=== PATIENT | female | born 1960 | race African-American/Black ===

== ENCOUNTER 2016-12-10 23:25 | Inpatient (IN) | payer MEDICARE, MEDICAID ==
[~2016-12-10] VITALS: Ht 170.2 cm; Wt 89.0 kg
[~2016-12-10 23:25] MED LIST: CARB200C; CARB200T4 PO; CLON-365; DIAZ10TA4 PO; FLUR30CA3; IBUP-1222 PO; LEVO100T PO; LEVO150T5 PO; LEVO200T5; LEVO50TA5 PO; LEVO750T6 PO; LISI-170; LISI-170 PO; MIRT15TA4; MIRT45TA4 PO; MUPI22OI2 TP; NITR100C PO; ONDA4TAB7; PANT40TA5; PROM25TA10; QUET100T; RANI150T4 PO; RELACORE PO; SERT100T; TEMA30CA PO; TRAZ100T15 PO; ZIPR40CA3 PO
[2016-12-11] MEDS ORDERED: ONDANSETRON 2MG/ML, 2ML IVPush ONE
[2016-12-11] MEDS ORDERED: SODIUM CHLORIDE 0.9% 1,000ML IVBOLUS ONE
[2016-12-11] MEDS ORDERED: SODIUM CHLORIDE FLUSH 10ML SYR IVF ONE
[2016-12-11] MEDS ORDERED: FENTANYL PF 100 MCG/2ML ONE ×2 (00:14→02:02)
[2016-12-11] MEDS ORDERED: ONDANSETRON 2MG/ML, 2ML ONE (00:14)
[2016-12-11 00:25] LABS: ASPARTATE AMINO TRANSFERASE 24 U/L (15-37); BLOOD UREA NITROGEN 10 mg/dL (7-18)
[2016-12-11] MEDS: FENTANYL PF 100 MCG/2ML IVPush PRN ×4 (00:34→08:39)
[2016-12-11] MEDS ORDERED: OMNIPAQUE 350 MG/ML, 100ML BOTTLE ONE (00:57)
[2016-12-11] MEDS ORDERED: SODIUM CHLORIDE 0.9% 1,000 ML IV ONE (01:49)
[2016-12-11] MEDS ORDERED: METRONIDAZOLE PMX 500MG/100ML 100 ML IV ONE (02:00)
[2016-12-11] MEDS ORDERED: CIPROFLOXACIN/PMX 400MG/200ML 200 ML IV ONE (02:00)
[2016-12-11] MEDS ORDERED: ONDANSETRON 2MG/ML, 2ML IVPush PRN (02:00)
[2016-12-11] MEDS ORDERED: HYDROmorphone 1 MG/ML, 1ML IVPush PRN (02:00)
[2016-12-11] MEDS ORDERED: ONDANSETRON 2MG/ML, 2ML IVP PRN (02:30)
[2016-12-11] MEDS ORDERED: ACETAMINOPHEN 325 MG TABLET PO PRN (02:30)
[2016-12-11] MEDS ORDERED: DOCUSATE 100 MG CAPSULE PO PRN (02:30)
[2016-12-11] MEDS ORDERED: POLYETHYLENE GLYCOL 17 GM PACKET PO PRN (02:30)
[2016-12-11] MEDS ORDERED: METRONIDAZOLE PMX 500MG/100ML 100 ML ONE (02:47)
[2016-12-11] MEDS ORDERED: CIPROFLOXACIN/PMX 400MG/200ML 200 ML ONE (02:47)
[2016-12-11] MEDS: CIPROFLOXACIN/PMX 400MG/200ML 200 ML IV SCH ×2 (03:15→15:07)
[2016-12-11] MEDS: LEVOTHYROXINE 150 MCG TABLET PO SCH ×2 (03:42→20:38)
[2016-12-11] MEDS: NS + 20MEQ KCL 1,000 ML IV SCH ×2 (05:04→10:54)
[2016-12-11 08:07] VITALS: BP 117/84
[2016-12-11] MEDS ORDERED: DIAZEPAM 5 MG TABLET ONE ×3 (08:37→20:28)
[2016-12-11] MEDS: DIAZEPAM 10 MG TABLET PO SCH ×3 (08:39→20:37)
[2016-12-11] MEDS: CARBAMAZEPINE 200 MG TABLET PO SCH ×2 (08:39→20:37)
[2016-12-11] MEDS: LISINOPRIL 20 MG TABLET PO SCH (08:39)
[2016-12-11] MEDS: FAMOTIDINE 20 MG TABLET PO SCH ×2 (08:39→20:37)
[2016-12-11] MEDS: ZIPRASIDONE 40MG CAPSULE PO SCH ×2 (08:40→20:38)
[2016-12-11] MEDS: METRONIDAZOLE PMX 500MG/100ML 100 ML IV SCH ×2 (10:54→18:41)
[2016-12-11] MEDS: ENOXAPARIN 40 MG/0.4 ML SQ SCH (11:45)
[2016-12-11] MEDS: HYDROcodone/APAP 5/325 TABLET PO PRN ×2 (15:08→20:38)
[2016-12-11 15:28] VITALS: BP 92/60
[2016-12-11 19:17] VITALS: BP 99/56
[2016-12-11] MEDS ORDERED: MIRTAZAPINE 15 MG TABLET PO SCH (21:00)
[2016-12-12] MEDS: METRONIDAZOLE PMX 500MG/100ML 100 ML IV SCH (02:49)
[2016-12-12] MEDS: HYDROcodone/APAP 5/325 TABLET PO PRN ×2 (02:54→09:14)
[2016-12-12] MEDS: CIPROFLOXACIN/PMX 400MG/200ML 200 ML IV SCH (04:12)
[2016-12-12 04:24] VITALS: BP 122/76
[2016-12-12 05:36] LABS: BLOOD UREA NITROGEN 8 mg/dL (7-18)
[2016-12-12] MEDS: LEVOTHYROXINE 150 MCG TABLET PO SCH (07:24)
[2016-12-12 08:31] VITALS: BP 96/57
[2016-12-12] MEDS: LISINOPRIL 20 MG TABLET PO SCH ×2 (09:14→09:23)
[2016-12-12] MEDS: ZIPRASIDONE 40MG CAPSULE PO SCH (09:14)
[2016-12-12] MEDS: FAMOTIDINE 20 MG TABLET PO SCH (09:14)
[2016-12-12] MEDS: CARBAMAZEPINE 200 MG TABLET PO SCH (09:14)
[2016-12-12] MEDS ORDERED: DIAZEPAM 5 MG TABLET ONE (09:17)
[2016-12-12] MEDS: DIAZEPAM 10 MG TABLET PO SCH (09:19)
[2016-12-12] MEDS ORDERED: ONDA4TAB10 PO (09:48)
[2016-12-12] MEDS ORDERED: HYDR-3240 PO (09:48)
[2016-12-12] MEDS ORDERED: CEFD300C37 PO (09:48)
[2016-12-12] MEDS ORDERED: METR500T PO (09:48)
[2016-12-12] MEDS ORDERED: metroNIDAZOLE 500 MG TABLET PO SCH (10:00)
[2016-12-12] MEDS ORDERED: CEFDINIR 300 MG CAPSULE PO SCH (10:00)
[2016-12-12] MEDS: ENOXAPARIN 40 MG/0.4 ML SQ SCH (11:51)
[2016-12-12 12:00] VITALS: BP 103/69
== END 2016-12-12 12:10 | disposition home or self-care (01) | DRG 872 ==
LOC: ED 12-11 01:48 → 4NOR 12-11 01:49 → SUATTDRO 12-11 02:03 → ED 12-11 02:20
PROVIDERS: ADMIT Family Medicine
DX: A41.9 Sepsis, unspecified organism (principal); E87.1 Hypo-osmolality and hyponatremia; E87.2 Acidosis; K52.9 Noninfective gastroenteritis and colitis, unspecified; D75.1 Secondary polycythemia; I10 Essential (primary) hypertension; E03.9 Hypothyroidism, unspecified; D64.9 Anemia, unspecified; E86.0 Dehydration; F12.90 Cannabis use, unspecified, uncomplicated; F17.200 Nicotine dependence, unspecified, uncomplicated; F32.9 Major depressive disorder, single episode, unspecified; F41.1 Generalized anxiety disorder; K21.9 Gastro-esophageal reflux disease without esophagitis; Z82.49 Family history of ischemic heart disease and other diseases of the circulatory system; Z83.3 Family history of diabetes mellitus; Z90.89 Acquired absence of other organs; Z90.710 Acquired absence of both cervix and uterus; Z91.040 Latex allergy status; Z88.5 Allergy status to narcotic agent; Z91.018 Allergy to other foods
CPT/HCPCS: 36415; 74174; 80048; 80053; 81001; 83605; 83690; 83735; 85025; 85610; 87046; 87324; 93005; 96361; 96374; 96375; 96376; J0744; J1650; J2405; J3010; J3480; Q9967; J7030

== ENCOUNTER 2017-04-04 09:07 | Emergency (ER) | payer MEDICARE, MEDICAID ==
[~2017-04-04] VITALS: Ht 170.2 cm; Wt 85.0 kg
[2017-04-04 11:03] VITALS: BP 114/77
== END 2017-04-04 11:07 | disposition home or self-care (01) ==
LOC: ED 10:13
DX: F32.9 Major depressive disorder, single episode, unspecified (principal); E03.9 Hypothyroidism, unspecified; I10 Essential (primary) hypertension; K21.9 Gastro-esophageal reflux disease without esophagitis; F19.10 Other psychoactive substance abuse, uncomplicated
CPT/HCPCS: 93005; 99284

== ENCOUNTER → 2017-04-04 | Outpatient (CLI) | payer MEDICARE, MEDICAID ==
[~2017-04-04] MED LIST changes: +CEFD300C37 PO; +HYDR-3240 PO; +METR500T PO; +ONDA4TAB10 PO
== END | disposition home or self-care (01) ==
LOC: LAB 11:11
PROVIDERS: ATTEND Internal Medicine
DX: Z02.9 Encounter for administrative examinations, unspecified (principal)

== ENCOUNTER 2017-04-09 03:45 | Emergency (ER) | payer MEDICARE, MEDICAID ==
[~2017-04-09] VITALS: Ht 165.1 cm; Wt 82.7 kg
[2017-04-09] MEDS ORDERED: methylPREDNISolone SOD SUCC 125 MG/2 ML ONE (03:57)
[2017-04-09] MEDS ORDERED: FAMOTIDINE 20 MG/2 ML ONE ×2 (03:58→04:01)
[2017-04-09] MEDS ORDERED: SODIUM CHLORIDE 0.9%, 500ML IVBOLUS ONE (04:00)
[2017-04-09] MEDS ORDERED: methylPREDNISolone SOD SUCC 125 MG/2 ML IVPush SCH (04:00)
[2017-04-09] MEDS ORDERED: FAMOTIDINE 20 MG/2 ML IVPush ONE (04:00)
[2017-04-09] MEDS ORDERED: SODIUM CHLORIDE FLUSH 10ML SYR IVF ONE (04:00)
[2017-04-09 04:21] LABS: HEMATOCRIT 32.5 % (34.6-47.8); HEMOGLOBIN 11.1 g/dL (11.7-16.4); WHITE BLOOD COUNT 4.4 x10^3/uL (3.4-10)
[2017-04-09 04:30] LABS: BLOOD UREA NITROGEN 15 mg/dL (7-18)
[2017-04-09 04:56] VITALS: BP 117/71
== END 2017-04-09 05:56 | disposition home or self-care (01) ==
LOC: ED 04:19
DX: T78.3XXA Angioneurotic edema, initial encounter (principal); I10 Essential (primary) hypertension
CPT/HCPCS: 36415; 80048; 85025; 96361; 96374; 96375; 99284; J2930; J7040; S0028

== ENCOUNTER 2017-04-10 23:01 | Emergency (ER) | payer MEDICARE, MEDICAID ==
[~2017-04-10] VITALS: Ht 170.2 cm; Wt 75.0 kg
[2017-04-10] MEDS ORDERED: HYDROmorphone 1 MG/ML, 1ML ONE (23:30)
[2017-04-10] MEDS ORDERED: SODIUM CHLORIDE FLUSH 10ML SYR IVF ONE (23:30)
[2017-04-10] MEDS ORDERED: ONDANSETRON 2MG/ML, 2ML ONE (23:30)
[2017-04-10] MEDS ORDERED: ONDANSETRON 2MG/ML, 2ML IVPush ONE (23:30)
[2017-04-11] MEDS: HYDROmorphone 1 MG/ML, 1ML IVPush PRN ×2 (00:27→01:47)
[2017-04-11] MEDS ORDERED: ONDANSETRON 2MG/ML, 2ML ONE (01:45)
[2017-04-11] MEDS ORDERED: HYDROmorphone 1 MG/ML, 1ML ONE (01:45)
[2017-04-11] MEDS ORDERED: ONDANSETRON 2MG/ML, 2ML IVPush ONE (02:00)
[2017-04-11 02:50] VITALS: BP 117/67
== END 2017-04-11 02:56 | disposition home or self-care (01) ==
LOC: ED 23:58
DX: S02.82XA Fracture of other specified skull and facial bones, left side, initial encounter for closed fracture (principal); S40.011A Contusion of right shoulder, initial encounter; S00.12XA Contusion of left eyelid and periocular area, initial encounter; S50.01XA Contusion of right elbow, initial encounter; S60.011A Contusion of right thumb without damage to nail, initial encounter; S80.01XA Contusion of right knee, initial encounter; I10 Essential (primary) hypertension; E03.9 Hypothyroidism, unspecified; Z90.710 Acquired absence of both cervix and uterus; F17.200 Nicotine dependence, unspecified, uncomplicated; Y08.89XA Assault by other specified means, initial encounter; Y93.89 Activity, other specified; Y92.009 Unspecified place in unspecified non-institutional (private) residence as the place of occurrence of the external cause; Y99.9 Unspecified external cause status
CPT/HCPCS: 70450; 70486; 72125; 73030; 73080; 73130; 73564; 96374; 96375; 96376; 99284; J1170; J2405

== ENCOUNTER → 2017-05-01 | Outpatient (CLI) | payer MEDICARE, MEDICAID ==
[2017-05-01 10:55] LABS: HIV 1&2 ANTIBODY SCREEN Nonreactive (Nonreactive); HIV-1 p24 ANTIGEN Nonreactive (Nonreactive)
== END | disposition home or self-care (01) ==
LOC: LAB 10:07
DX: Z11.3 Encounter for screening for infections with a predominantly sexual mode of transmission (principal)
CPT/HCPCS: 36415; 86592; 86703; 86803; 87340; 87899; G0435

== ENCOUNTER 2017-05-02 10:35 | Emergency (ER) | payer MEDICARE, MEDICAID ==
[~2017-05-02] VITALS: Ht 170.2 cm; Wt 75.0 kg
[2017-05-02] MEDS ORDERED: ONDANSETRON ODT 4 MG ONE (11:29)
[2017-05-02] MEDS ORDERED: HYDROmorphone 1 MG/ML, 1ML ONE (11:29)
[2017-05-02] MEDS ORDERED: ONDANSETRON ODT 4 MG PO ONE (11:30)
[2017-05-02] MEDS ORDERED: HYDROmorphone 1 MG/ML, 1ML IM PRN (11:30)
[2017-05-02 11:42] VITALS: BP 114/72
== END 2017-05-02 12:50 | disposition home or self-care (01) ==
LOC: ED 12:46
DX: S20.212A Contusion of left front wall of thorax, initial encounter (principal); I10 Essential (primary) hypertension; K21.9 Gastro-esophageal reflux disease without esophagitis; Z91.040 Latex allergy status; W19.XXXA Unspecified fall, initial encounter; Y93.89 Activity, other specified; Y92.009 Unspecified place in unspecified non-institutional (private) residence as the place of occurrence of the external cause; Y99.9 Unspecified external cause status
CPT/HCPCS: 71101; 96372; 99284; J1170; Q0162

== ENCOUNTER 2017-08-09 22:05 | Emergency (ER) | payer MEDICARE, MEDICAID ==
[~2017-08-09] VITALS: Ht 170.2 cm; Wt 80.0 kg
[2017-08-09] MEDS ORDERED: ONDANSETRON 2MG/ML, 2ML ONE (22:44)
[2017-08-09 23:00] LABS: BASOPHILS # (AUTO) 0.04 x10^3/uL (0-0.1); BASOPHILS % (AUTO) 0 % (0-1); EOSINOPHILS # (AUTO) 0.06 x10^3/uL (0-0.4); EOSINOPHILS % (AUTO) 1 % (1-7); LYMPHOCYTES # (AUTO) 1.98 x10^3/uL (1-3.4); LYMPHOCYTES % (AUTO) 18 % (22-44); MD NO; MEAN CORPUSCULAR HEMOGLOBIN 31.1 pg (27.0-34.8); MEAN CORPUSCULAR HGB CONC 33.9 g/dL (32.4-35.8); MEAN CORPUSCULAR VOLUME 91.7 fL (80-100); MEAN PLATELET VOLUME 8.1 fL (7.4-10.4); MONOCYTES # (AUTO) 0.57 x10^3/uL (0.2-0.8); MONOCYTES % (AUTO) 5 % (2-9); NEUTROPHILS # (AUTO) 8.29 x10^3/uL (1.8-6.8); NEUTROPHILS % (AUTO) 76 % (42-75); PLATELET COUNT 304 x10^3/uL (130-400); RED BLOOD COUNT 4.29 x10^6/uL (3.82-5.3); RED CELL DISTRIBUTION WIDTH 13.3 % (9.6-15.2)
[2017-08-09] MEDS ORDERED: SODIUM CHLORIDE 0.9% 1,000ML IVBOLUS ONE (23:00)
[2017-08-09] MEDS ORDERED: ONDANSETRON 2MG/ML, 2ML IVPush ONE (23:00)
[2017-08-09 23:03] LABS: ALANINE AMINOTRANSFERASE 20 U/L (12-78); ALBUMIN 4.1 g/dL (3.4-5.0); ANION GAP 11 mmol/L (5-15); CALCIUM 9.6 mg/dL (8.5-10.1); CHLORIDE 106 mmol/L (98-107); CREATININE 1.09 mg/dL (0.55-1.02)
[2017-08-09 23:05] LABS: ALKALINE PHOSPHATASE 80 U/L (45-117); BILIRUBIN,TOTAL 0.7 mg/dL (0.2-1.0); TOTAL PROTEIN 8.4 g/dL (6.4-8.2)
[2017-08-09] MEDS ORDERED: OMNIPAQUE 350 MG/ML, 100ML BOTTLE ONE (23:45)
[2017-08-10] MEDS ORDERED: KETOROLAC 30 MG/1 ML IVPush ONE
[2017-08-10 00:19] VITALS: BP 136/83
[2017-08-10 01:03] LABS: MICROSCOPIC INDICATED
[2017-08-10 01:11] LABS: CULTURE INDICATED? YES
== END 2017-08-10 02:13 | disposition home or self-care (01) ==
LOC: ED 23:53
DX: A09 Infectious gastroenteritis and colitis, unspecified (principal); I10 Essential (primary) hypertension; K21.9 Gastro-esophageal reflux disease without esophagitis; E89.0 Postprocedural hypothyroidism; Z90.710 Acquired absence of both cervix and uterus; Z88.5 Allergy status to narcotic agent
CPT/HCPCS: 36415; 74021; 74177; 80053; 81001; 83690; 85025; 87086; 96361; 96374; 99285; J2405; J7030; Q9967

== ENCOUNTER → 2017-10-07 | Outpatient (CLI) | payer MEDICARE, MEDICAID ==
[2017-10-07 10:45] LABS: BASOPHILS # (AUTO) 0.04 x10^3/uL (0-0.1); BASOPHILS % (AUTO) 1 % (0-1); EOSINOPHILS # (AUTO) 0.13 x10^3/uL (0-0.4); EOSINOPHILS % (AUTO) 2 % (1-7); LYMPHOCYTES # (AUTO) 3.13 x10^3/uL (1-3.4); LYMPHOCYTES % (AUTO) 48 % (22-44); MD NO; MEAN CORPUSCULAR HEMOGLOBIN 30.7 pg (27.0-34.8); MEAN CORPUSCULAR HGB CONC 33.7 g/dL (32.4-35.8); MEAN CORPUSCULAR VOLUME 91.1 fL (80-100); MEAN PLATELET VOLUME 7.8 fL (7.4-10.4); MONOCYTES % (AUTO) 8 % (2-9); NEUTROPHILS # (AUTO) 2.67 x10^3/uL (1.8-6.8); NEUTROPHILS % (AUTO) 41 % (42-75); PLATELET COUNT 327 x10^3/uL (130-400); RED BLOOD COUNT 4.14 x10^6/uL (3.82-5.3); RED CELL DISTRIBUTION WIDTH 13.8 % (9.6-15.2)
[2017-10-07 10:55] LABS: ALBUMIN 3.9 g/dL (3.4-5.0); ANION GAP 7 mmol/L (5-15); CALCIUM 9.1 mg/dL (8.5-10.1); CHLORIDE 106 mmol/L (98-107)
[2017-10-07 11:04] LABS: ALANINE AMINOTRANSFERASE 20 U/L (12-78); ALKALINE PHOSPHATASE 75 U/L (45-117); BILIRUBIN,TOTAL 0.3 mg/dL (0.2-1.0); CHOL/HDL RATIO 5.7; CHOLESTEROL, TOTAL 223 mg/dL (140-239); FREE T4 (FREE THYROXINE) 1.35 ng/dL (0.76-1.46); HDL CHOL % 17 % (28-40); HDL CHOLESTEROL (DIRECT) 39 mg/dL (40-60); LDL CHOLESTEROL,CALCULATED 153 mg/dL (54-169); LDL/HDL RATIO 3.9 (0.5-3.0); TOTAL PROTEIN 8.6 g/dL (6.4-8.2); TRIGLYCERIDES 154 mg/dL (50-200); VLDL CHOLESTEROL 31 mg/dL (0-25)
== END ==
LOC: LAB 10:31
PROVIDERS: ATTEND Registered Nurse
DX: J45.40 Moderate persistent asthma, uncomplicated (principal); Z79.899 Other long term (current) drug therapy
CPT/HCPCS: 36415; 80053; 80061; 84439; 84443; 85025

== ENCOUNTER 2018-09-03 10:05 | Outpatient (CLI) | payer MEDICARE, MEDICAID ==
[~2018-09-03 10:05] MED LIST changes: -CLON-365; +CLON1TAB11; +DOXE100C PO; +DOXEPIN PO; -MIRT45TA4 PO; +MIRT45TA61 PO; +TRAZ-137 PO; -TRAZ100T15 PO
[2018-09-03 10:58] LABS: BASOPHILS # (AUTO) 0.03 x10^3/uL (0-0.1); BASOPHILS % (AUTO) 0 % (0-1); EOSINOPHILS # (AUTO) 0.14 x10^3/uL (0-0.4); EOSINOPHILS % (AUTO) 2 % (1-7); LYMPHOCYTES # (AUTO) 2.02 x10^3/uL (1-3.4); LYMPHOCYTES % (AUTO) 25 % (22-44); MD NO; MEAN CORPUSCULAR HEMOGLOBIN 31.2 pg (27.0-34.8); MEAN CORPUSCULAR HGB CONC 33.9 g/dL (32.4-35.8); MEAN CORPUSCULAR VOLUME 91.9 fL (80-100); MEAN PLATELET VOLUME 8.1 fL (7.4-10.4); MONOCYTES # (AUTO) 0.46 x10^3/uL (0.2-0.8); MONOCYTES % (AUTO) 6 % (2-9); NEUTROPHILS # (AUTO) 5.55 x10^3/uL (1.8-6.8); NEUTROPHILS % (AUTO) 68 % (42-75); PLATELET COUNT 314 x10^3/uL (130-400); RED BLOOD COUNT 3.74 x10^6/uL (3.82-5.3); RED CELL DISTRIBUTION WIDTH 14.7 % (9.6-15.2)
[2018-09-03 11:02] LABS: HCT (SEDRATE) 34.3 % (34.6-47.8)
[2018-09-03 11:09] LABS: ALBUMIN 3.9 g/dL (3.4-5.0); ANION GAP 5 mmol/L (5-15); CHLORIDE 104 mmol/L (98-107)
[2018-09-03 11:36] LABS: % IRON SATURATION 11 % (20-55); ALANINE AMINOTRANSFERASE 21 U/L (12-78); ALKALINE PHOSPHATASE 71 U/L (45-117); BILIRUBIN,TOTAL 0.2 mg/dL (0.2-1.0); CHOL/HDL RATIO 3.9; CHOLESTEROL, TOTAL 218 mg/dL (140-239); CREATININE 1.04 mg/dL (0.55-1.02); FOLATE LEVEL 17.1 ng/mL (3.1-17.5); HDL CHOL % 26 % (28-40); HDL CHOLESTEROL (DIRECT) 56 mg/dL (40-60); IRON LEVEL 38 mcg/dL (50-170); LDL CHOLESTEROL,CALCULATED 97 mg/dL (54-169); LDL/HDL RATIO 1.7 (0.5-3.0); TOTAL IRON BINDING CAPACITY 360 mcg/dL (250-450); TOTAL PROTEIN 8.3 g/dL (6.4-8.2); TRIGLYCERIDES 326 mg/dL (50-200); VLDL CHOLESTEROL 65 mg/dL (0-25)
[2018-09-03 11:54] LABS: FREE T4 (FREE THYROXINE) 0.95 ng/dL (0.76-1.46)
[2018-09-03 12:32] LABS: HEMOGLOBIN A1C 5.8 % (4.2-6.3)
[2018-09-04 16:51] LABS: ANA SCREEN POSITIVE (Negative); ANA TITER 1:40; ANTI-NUCLEAR ANTIBODY PATTERN SPECKLED
== END 2018-09-03 23:59 | disposition home or self-care (01) ==
LOC: LAB 10:05
PROVIDERS: ATTEND Nurse Practitioner Psychiatric/Mental Health
DX: Z51.81 Encounter for therapeutic drug level monitoring (principal); I10 Essential (primary) hypertension; E55.9 Vitamin D deficiency, unspecified; M79.604 Pain in right leg; M79.605 Pain in left leg
CPT/HCPCS: 36415; 80053; 80061; 80074; 80156; 82150; 82306; 82607; 82728; 82746; 82784; 83036; 83516; 83540; 83550; 83690; 84155; 84165; 84439; 84443; 85025; 85651; 86038; 86039; 86140; 86334; 86430

== ENCOUNTER 2018-11-03 09:31 | Inpatient (IN) | payer MEDICARE, MEDICAID ==
[~2018-11-03] VITALS: Ht 170.2 cm; Wt 91.3 kg
[2018-11-03] MEDS ORDERED: methylPREDNISolone SOD SUCC 125 MG/2 ML ONE (09:48)
[2018-11-03] MEDS ORDERED: FAMOTIDINE 20 MG/2 ML ONE (09:48)
[2018-11-03] MEDS ORDERED: EPINEPHRINE 1 MG/ML, 1ML ONE (09:48)
--- NOTE | 2018-11-03 09:48 | NUR ---
Mary santoyo in [facility] - 11/03/18 at 0948 by DANIELLE PT TO ROOM FROM GERI
[2018-11-03] MEDS ORDERED: EPINEPHRINE 1 MG/ML, 1ML SQ ONE (10:00)
[2018-11-03] MEDS ORDERED: FAMOTIDINE 20 MG/2 ML IVPush ONE (10:00)
[2018-11-03] MEDS ORDERED: methylPREDNISolone SOD SUCC 125 MG/2 ML IVPush ONE (10:00)
[2018-11-03] MEDS ORDERED: SODIUM CHLORIDE FLUSH 10ML SYR IVF ONE (10:00)
--- NOTE | 2018-11-03 10:07 | NUR ---
Patient brought in by EMS for difficulty swallowing and shortness of breath beginning at approximately 0700 this morning and becoming progressively worse. EMS unable to establish IV access en route, administered benadryl 50mg IM prior to arrival and duoneb breathing treatment x1. Patient arrives in moderate distress, able to control secretions but reports "it feels like theres something stuck" (indicates to throat), and reports pain with swallowing, patient has a muffled voice. Continuous blood pressure, SPO2 and cardiac monitoring placed, IV started and medications administered as ordered. Patient now resting in [facility], reports she is beginning to feel that symptoms are improving. Call [facility]ston within reach, patient instructed to call with any changes. Report to patient's primary RN, Silvina Oviedo
[2018-11-03 10:16] LABS: BASOPHILS # (AUTO) 0.15 x10^3/uL (0-0.1); BASOPHILS % (AUTO) 2 % (0-1); EOSINOPHILS # (AUTO) 0.12 x10^3/uL (0-0.4); EOSINOPHILS % (AUTO) 1 % (1-7); LYMPHOCYTES # (AUTO) 3.71 x10^3/uL (1-3.4); LYMPHOCYTES % (AUTO) 36 % (22-44); MD NO; MEAN CORPUSCULAR HGB CONC 33.4 g/dL (32.4-35.8); MEAN CORPUSCULAR VOLUME 92.7 fL (80-100); MEAN PLATELET VOLUME 8.4 fL (7.4-10.4); MONOCYTES % (AUTO) 5 % (2-9); NEUTROPHILS # (AUTO) 5.71 x10^3/uL (1.8-6.8); NEUTROPHILS % (AUTO) 56 % (42-75); PLATELET COUNT 355 x10^3/uL (130-400); RED BLOOD COUNT 4.05 x10^6/uL (3.82-5.3); RED CELL DISTRIBUTION WIDTH 14.7 % (9.6-15.2)
[2018-11-03 10:31] LABS: ALBUMIN 4.2 g/dL (3.4-5.0); ANION GAP 9 mmol/L (5-15); CALCIUM 9.6 mg/dL (8.5-10.1); CHLORIDE 105 mmol/L (98-107); CREATININE 1.11 mg/dL (0.55-1.02)
[2018-11-03] MEDS ORDERED: ONDANSETRON 2MG/ML, 2ML ONE (10:51)
--- NOTE | 2018-11-03 10:56 | NUR ---
pt medicated for nausea. no other needs at this time. vss. awaiting results.
[2018-11-03] MEDS ORDERED: ONDANSETRON 2MG/ML, 2ML IVPush ONE (11:00)
--- NOTE | 2018-11-03 11:55 | NUR ---
PT RESTING IN ROOM. VSS. NO NEEDS AT THIS TIME. AWAITING BED ASSIGNMENT.
[2018-11-03] MEDS ORDERED: SODIUM CHLORIDE FLUSH 10ML SYR IVF PRN (12:00)
--- NOTE | 2018-11-03 12:51 | NUR ---
PT RESTING IN ROOM. VSS. NO NEEDS AT THIS TIME. AWAITING BED ASSIGNMENT.
[2018-11-03 14:12] VITALS: BP 120/79
[2018-11-03] MEDS ORDERED: ONDANSETRON 2MG/ML, 2ML IVPush PRN (15:00)
[2018-11-03] MEDS ORDERED: DOCUSATE 100 MG CAPSULE PO PRN (15:00)
[2018-11-03] MEDS ORDERED: ACETAMINOPHEN 325 MG TABLET PO PRN (15:00)
[2018-11-03] MEDS ORDERED: hydrALAzine 20 MG/ML, 1ML IVPush PRN (15:00)
[2018-11-03] MEDS ORDERED: GUAIFENESIN/COD200MG-20MG/10ML LIQUID PO PRN (15:00)
[2018-11-03 15:13] VITALS: BP 120/79
[2018-11-03] MEDS ORDERED: DIAZEPAM 5 MG TABLET ONE ×2 (15:40→21:32)
[2018-11-03] MEDS: ONDANSETRON ODT 4 MG PO SCH ×2 (15:50→21:00)
[2018-11-03] MEDS: DIAZEPAM 10 MG TABLET PO SCH ×2 (15:50→21:37)
[2018-11-03] MEDS: methylPREDNISolone SOD SUCC 125 MG/2 ML IVPush SCH (15:51)
[2018-11-03] MEDS ORDERED: DIPHENHYDRAMINE 50 MG CAPSULE PO SCH (16:00)
[2018-11-03] MEDS ORDERED: ENOXAPARIN 40 MG/0.4 ML SQ SCH (16:00)
[2018-11-03 20:11] VITALS: BP 126/83
[2018-11-03] MEDS ORDERED: CARBAMAZEPINE 200 MG TABLET PO SCH (21:00)
[2018-11-03] MEDS ORDERED: DOXEPIN 100 MG CAPSULE PO SCH (21:30)
[2018-11-03] MEDS ORDERED: ONDANSETRON ODT 4 MG PO PRN (21:30)
[2018-11-03] MEDS: FAMOTIDINE 20 MG/2 ML IVPush SCH (21:36)
[2018-11-03] MEDS: DIPHENHYDRAMINE 50 MG CAPSULE PO SCH (23:59)
[2018-11-04 02:29] VITALS: BP 145/79
[2018-11-04 06:07] LABS: BASOPHILS # (AUTO) 0.01 x10^3/uL (0-0.1); BASOPHILS % (AUTO) 0 % (0-1); EOSINOPHILS % (AUTO) 0 % (1-7); LYMPHOCYTES # (AUTO) 1.08 x10^3/uL (1-3.4); LYMPHOCYTES % (AUTO) 10 % (22-44); MD NO; MEAN CORPUSCULAR HGB CONC 34.3 g/dL (32.4-35.8); MEAN CORPUSCULAR VOLUME 93.2 fL (80-100); MEAN PLATELET VOLUME 8.3 fL (7.4-10.4); MONOCYTES # (AUTO) 0.03 x10^3/uL (0.2-0.8); MONOCYTES % (AUTO) 0 % (2-9); NEUTROPHILS # (AUTO) 9.54 x10^3/uL (1.8-6.8); NEUTROPHILS % (AUTO) 90 % (42-75); PLATELET COUNT 296 x10^3/uL (130-400); RED BLOOD COUNT 3.49 x10^6/uL (3.82-5.3); RED CELL DISTRIBUTION WIDTH 14.9 % (9.6-15.2)
[2018-11-04 06:16] LABS: CHLORIDE 107 mmol/L (98-107)
[2018-11-04 06:23] LABS: ANION GAP 11 mmol/L (5-15); CALCIUM 9.5 mg/dL (8.5-10.1); CREATININE 1.09 mg/dL (0.55-1.02)
[2018-11-04 07:24] VITALS: BP 117/77
[2018-11-04] MEDS ORDERED: DIAZEPAM 5 MG TABLET ONE (08:17)
[2018-11-04] MEDS: DIPHENHYDRAMINE 50 MG CAPSULE PO SCH (08:26)
[2018-11-04] MEDS: DIAZEPAM 10 MG TABLET PO SCH (08:27)
[2018-11-04] MEDS: FAMOTIDINE 20 MG/2 ML IVPush SCH (08:28)
[2018-11-04] MEDS: methylPREDNISolone SOD SUCC 125 MG/2 ML IVPush SCH ×2 (08:28)
[2018-11-04] MEDS ORDERED: DOXEPIN 100 MG CAPSULE PO SCH (09:00)
[2018-11-04] MEDS ORDERED: LEVOTHYROXINE 150 MCG TABLET PO SCH (09:00)
[2018-11-04] MEDS ORDERED: FAMO20TA7 PO (13:38)
[2018-11-04] MEDS ORDERED: PRED20TA PO (13:38)
[2018-11-04] MEDS ORDERED: CETI10TA18 PO (13:38)
[2018-11-04] MEDS ORDERED: AMLO2.5T5 PO (13:39)
[2018-11-04 13:42] VITALS: BP 127/78
== END 2018-11-04 15:46 | disposition home or self-care (01) | DRG 916 ==
LOC: ED 11:44 → EDIP 11:45 → ED 11:51 → 4WST 14:54 → DCLOUNGE 11-04 15:31
PROVIDERS: ADMIT Internal Medicine; ATTEND Internal Medicine
DX: T78.3XXA Angioneurotic edema, initial encounter (principal); T46.4X5A Adverse effect of angiotensin-converting-enzyme inhibitors, initial encounter; F32.9 Major depressive disorder, single episode, unspecified; K21.9 Gastro-esophageal reflux disease without esophagitis; F41.9 Anxiety disorder, unspecified; E03.9 Hypothyroidism, unspecified; E87.6 Hypokalemia; F41.1 Generalized anxiety disorder; I10 Essential (primary) hypertension; R13.10 Dysphagia, unspecified; J38.4 Edema of larynx; Z91.040 Latex allergy status; Z88.5 Allergy status to narcotic agent; Z91.018 Allergy to other foods; Z87.11 Personal history of peptic ulcer disease; Y92.89 Other specified places as the place of occurrence of the external cause; Z90.89 Acquired absence of other organs; Z90.710 Acquired absence of both cervix and uterus
CPT/HCPCS: 36415; 80048; 82040; 83735; 85025; 93005; 96372; 96374; 96375; 99285; G0378; J0171; J1650; J2405; J2930; J3490; J7512

== ENCOUNTER → 2018-12-12 | Outpatient (CLI) | payer MEDICARE, MEDICAID ==
[~2018-12-12] MED LIST changes: +AMLO2.5T5 PO; +BP MED; +CETI10TA18 PO; +EPIN0.3A3 SC; +ESTR1TAB15 PO; +FAMO20TA7 PO; +FERR324T5 PO; +ONDA4TAB13 SL; +PRED20TA PO
[2018-12-12 15:56] LABS: BASOPHILS # (AUTO) 0.05 x10^3/uL (0-0.1); BASOPHILS % (AUTO) 1 % (0-1); EOSINOPHILS # (AUTO) 0.14 x10^3/uL (0-0.4); EOSINOPHILS % (AUTO) 2 % (1-7); LYMPHOCYTES # (AUTO) 2.63 x10^3/uL (1-3.4); LYMPHOCYTES % (AUTO) 38 % (22-44); MD NO; MEAN CORPUSCULAR HEMOGLOBIN 31.8 pg (27.0-34.8); MEAN CORPUSCULAR HGB CONC 33.8 g/dL (32.4-35.8); MEAN CORPUSCULAR VOLUME 94.3 fL (80-100); MEAN PLATELET VOLUME 8.1 fL (7.4-10.4); MONOCYTES % (AUTO) 7 % (2-9); NEUTROPHILS # (AUTO) 3.63 x10^3/uL (1.8-6.8); NEUTROPHILS % (AUTO) 52 % (42-75); PLATELET COUNT 326 x10^3/uL (130-400); RED BLOOD COUNT 3.44 x10^6/uL (3.82-5.3); RED CELL DISTRIBUTION WIDTH 15.4 % (9.6-15.2)
[2018-12-12 15:59] LABS: INTERNATIONAL NORMALIZED RATIO 0.93 (0.93-1.1); PROTHROMBIN TIME 9.8 Seconds (9.6-11.5)
[2018-12-12 16:01] LABS: ALANINE AMINOTRANSFERASE 22 U/L (12-78); ALBUMIN 3.9 g/dL (3.4-5.0); ANION GAP 7 mmol/L (5-15); CALCIUM 9.3 mg/dL (8.5-10.1); CHLORIDE 108 mmol/L (98-107); CREATININE 0.94 mg/dL (0.55-1.02)
[2018-12-12 16:03] LABS: ALKALINE PHOSPHATASE 62 U/L (45-117); TOTAL PROTEIN 7.9 g/dL (6.4-8.2)
[2018-12-12 16:05] LABS: BILIRUBIN,TOTAL < 0.1 mg/dL (0.2-1.0)
[2018-12-12 16:12] LABS: HEMOGLOBIN A1C 5.8 % (4.2-6.3)
== END | disposition home or self-care (01) ==
LOC: STAR 14:38
PROVIDERS: ATTEND Orthopaedic Surgery
DX: Z01.818 Encounter for other preprocedural examination (principal); M16.11 Unilateral primary osteoarthritis, right hip; R79.89 Other specified abnormal findings of blood chemistry
CPT/HCPCS: 36415; 80053; 83036; 85025; 85610; 85730; 87081; 93005

== ENCOUNTER 2018-12-19 06:22 | Inpatient (IN) | payer MEDICARE, MEDICAID ==
[~2018-12-19] VITALS: Ht 170.2 cm; Wt 89.0 kg
[~2018-12-19 06:22] MED LIST changes: +EPINEPHRINE 1 MG/ML, 1ML ONE; +KETOROLAC 60 MG/2 ML ONE; +ROPIvacaine/PF 0.5%, 30 ML ONE; +SODIUM CHLORIDE 0.9% 50 ML ONE; +TRANEXAMIC ACID 100 MG/ML, 10ML ONE; +VANCOMYCIN 1,000 MG ONE
[2018-12-19] MEDS ORDERED: NS + 20MEQ KCL 1,000 ML IV SCH (06:40)
[2018-12-19] MEDS ORDERED: OXYcodone IR 5MG TABLET PO PRN (07:00)
[2018-12-19] MEDS ORDERED: DIPHENHYDRAMINE 25 MG CAPSULE PO PRN (07:00)
[2018-12-19] MEDS ORDERED: SCOPOLAMINE PATCH, 1.5MG PATCH.TD72 TD ONE (07:00)
[2018-12-19] MEDS ORDERED: MAGNESIUM HYDROXIDE 8%, 30ML UDC PO PRN (07:00)
[2018-12-19] MEDS ORDERED: ONDANSETRON 4 MG TABLET PO PRN (07:00)
[2018-12-19] MEDS ORDERED: HYDROcodone/APAP 5/325 TABLET PO PRN (07:00)
[2018-12-19] MEDS ORDERED: BISACODYL 10 MG SUPP PR PRN (07:00)
[2018-12-19] MEDS ORDERED: DIAZEPAM 10 MG TABLET PO PRN (07:00)
[2018-12-19] MEDS ORDERED: SENNA/DOCUSATE TABLET PO PRN (07:00)
[2018-12-19] MEDS ORDERED: ACETAMINOPHEN 650 MG/20.3 ML UDC PO PRN (07:00)
[2018-12-19] MEDS ORDERED: ONDANSETRON 2MG/ML, 2ML IV PRN ×2 (07:00→11:00)
[2018-12-19] MEDS ORDERED: ZOLPIDEM 5MG TABLET PO PRN (07:00)
[2018-12-19] MEDS ORDERED: LACTATED RINGERS 1,000 ML IV SCH (07:01)
[2018-12-19 07:21] VITALS: BP 118/79
[2018-12-19] MEDS ORDERED: GABAPENTIN 300 MG CAPSULE PO ONE (07:30)
[2018-12-19] MEDS ORDERED: ACETAMINOPHEN 500 MG TABLET PO ONE (07:30)
[2018-12-19] MEDS ORDERED: HYDR25TA11 PO (07:36)
[2018-12-19] MEDS ORDERED: RANI150C PO (07:36)
[2018-12-19] MEDS ORDERED: AMLO10TA8 PO (07:36)
[2018-12-19] MEDS ORDERED: DOXE100C PO (07:36)
[2018-12-19] MEDS ORDERED: MIDAZOLAM 1 MG/ML, 2ML ONE (08:56)
[2018-12-19] MEDS ORDERED: CEFAZOLIN 1,000 MG ONE ×2 (08:57)
[2018-12-19] MEDS ORDERED: PROPOFOL 10 MG/ML, 20ML ONE (08:57)
[2018-12-19] MEDS ORDERED: ONDANSETRON 2MG/ML, 2ML ONE ×2 (08:57)
[2018-12-19] MEDS ORDERED: DEXAMETHASONE 4 MG/ML, 1ML ONE ×2 (08:57)
[2018-12-19] MEDS ORDERED: SUCCINYLCHOLINE 20 MG/ML, 10ML ONE (08:57)
[2018-12-19] MEDS ORDERED: FENTANYL PF 250 MCG/5ML ONE (08:57)
[2018-12-19] MEDS ORDERED: ROCURONIUM 10MG/ML,5ML ONE (08:57)
[2018-12-19] MEDS ORDERED: DOCUSATE 100 MG CAPSULE PO SCH (09:00)
[2018-12-19] MEDS ORDERED: LEVOTHYROXINE 175 MCG TABLET PO SCH (09:00)
[2018-12-19] MEDS ORDERED: FENTANYL PF 100 MCG/2ML ONE (10:17)
[2018-12-19] MEDS ORDERED: FENTANYL PF 100 MCG/2ML IV PRN (11:00)
[2018-12-19] MEDS ORDERED: HYDROcodone/APAP 7.5-325MG/15ML UDC PO PRN (11:00)
[2018-12-19] MEDS ORDERED: DIAZEPAM 5 MG/ML, 2ML IVPush PRN (11:00)
[2018-12-19] MEDS ORDERED: MEPERIDINE/PF 25MG/0.5ML IVPush PRN (11:00)
[2018-12-19] MEDS ORDERED: MIDAZOLAM 1 MG/ML, 2ML IV PRN (11:00)
[2018-12-19] MEDS ORDERED: hydrALAzine 20 MG/ML, 1ML IV PRN (11:00)
[2018-12-19] MEDS ORDERED: PROMETHAZINE 12.5 MG SUPP PR PRN (11:00)
[2018-12-19] MEDS ORDERED: ONDANSETRON ODT 8 MG PO PRN (11:00)
[2018-12-19] MEDS ORDERED: EPHEDRINE 50 MG/ML, 1ML IVPush PRN (11:00)
[2018-12-19] MEDS ORDERED: ALBUTEROL SULFATE 2.5 MG/3 ML NPPB PRN (11:00)
[2018-12-19] MEDS ORDERED: LABETALOL 5MG/ML, 20ML IV PRN (11:00)
[2018-12-19] MEDS ORDERED: PROMETHAZINE 25 MG/ML, 1ML IV PRN (11:00)
[2018-12-19] MEDS ORDERED: HALOPERIDOL 5 MG/ML IV PRN (11:00)
[2018-12-19] MEDS ORDERED: HYDROmorphone 2 MG/ML, 1ML ONE (11:13)
[2018-12-19] MEDS: HYDROmorphone 2 MG/ML, 1ML IVPush PRN ×3 (11:16→11:32)
[2018-12-19] MEDS ORDERED: CEFAZOLIN PMX 2GM/50ML 50 ML IVPB SCH (15:00)
[2018-12-19] MEDS ORDERED: OXYC5TAB3 PO (17:52)
[2018-12-19] MEDS ORDERED: TRAM50TA2 PO (17:53)
[2018-12-19] MEDS ORDERED: MELO7.5T31 PO (17:53)
[2018-12-19] MEDS ORDERED: ONDA4TAB7 PO (17:54)
[2018-12-19] MEDS ORDERED: ASPIRIN 81 MG TABLET EC PO SCH (18:00)
[2018-12-20] MEDS ORDERED: DEXAMETHASONE 4 MG/ML, 1ML IVPush SCH (06:00)
== END 2018-12-19 18:29 | disposition home or self-care (01) | DRG 470 ==
LOC: ORIP 06:22 → 4NOR 12:05
PROVIDERS: ADMIT Orthopaedic Surgery; ATTEND Orthopaedic Surgery
PROC: 0SR906A Replacement of Right Hip Joint with Oxidized Zirconium on Polyethylene Synthetic Substitute, Uncemented, Open Approach (ICD-10-PCS; principal; 2018-12-19 09:30)
DX: M16.11 Unilateral primary osteoarthritis, right hip (principal); E66.9 Obesity, unspecified; F41.9 Anxiety disorder, unspecified; I10 Essential (primary) hypertension; M81.0 Age-related osteoporosis without current pathological fracture; Z82.61 Family history of arthritis; Z68.30 Body mass index [BMI] 30.0-30.9, adult; Z88.6 Allergy status to analgesic agent; Z87.891 Personal history of nicotine dependence
CPT/HCPCS: 72170; 76000; C1713; G0378; J0171; J0690; J1100; J1170; J1885; J2250; J2405; J2704; J2795; J3010; J3370; J3480; C1776; J0330

== ENCOUNTER 2019-07-24 09:51 | Emergency (ER) | payer MEDICARE, MEDICAID ==
[~2019-07-24] VITALS: Ht 167.6 cm; Wt 80.0 kg
[~2019-07-24 09:51] MED LIST changes: +AMLO10TA8 PO; -CARB200C; +CARB200C5; -EPINEPHRINE 1 MG/ML, 1ML ONE; +HYDR-826 PO; -KETOROLAC 60 MG/2 ML ONE; +MELO7.5T31 PO; +MIRT-34; -MIRT15TA4; +ONDA4TAB7 PO; +OXYC5TAB3 PO; +RANI150C PO; -ROPIvacaine/PF 0.5%, 30 ML ONE; -SODIUM CHLORIDE 0.9% 50 ML ONE; +TRAM50TA2 PO; -TRANEXAMIC ACID 100 MG/ML, 10ML ONE; -VANCOMYCIN 1,000 MG ONE; +VITAMIN D PO
--- NOTE | 2019-07-24 09:58 | NUR ---
BIB EMS FOR BILAT FOOT PAIN. HX OF GOUT. N/V/D FOR FEW DAYS W FEVER. VS STABLE. HEAT PACK ON LEFT FOOT. PT NOT ON DISTRESS
[2019-07-24] MEDS ORDERED: KETOROLAC 60 MG/2 ML ONE (10:24)
[2019-07-24] MEDS ORDERED: KETOROLAC 30 MG/1 ML IM ONE (10:30)
[2019-07-24 10:31] LABS: BASOPHILS # (AUTO) 0.06 x10^3/uL (0-0.1); BASOPHILS % (AUTO) 1 % (0-1); EOSINOPHILS # (AUTO) 0.04 x10^3/uL (0-0.4); EOSINOPHILS % (AUTO) 0 % (1-7); LYMPHOCYTES # (AUTO) 2.02 x10^3/uL (1-3.4); LYMPHOCYTES % (AUTO) 17 % (22-44); MD NO; MEAN CORPUSCULAR HEMOGLOBIN 34.1 pg (27.0-34.8); MEAN CORPUSCULAR HGB CONC 32.3 g/dL (32.4-35.8); MEAN CORPUSCULAR VOLUME 105.3 fL (80-100); MEAN PLATELET VOLUME 7.8 fL (7.4-10.4); MONOCYTES # (AUTO) 0.86 x10^3/uL (0.2-0.8); MONOCYTES % (AUTO) 7 % (2-9); NEUTROPHILS # (AUTO) 8.96 x10^3/uL (1.8-6.8); NEUTROPHILS % (AUTO) 75 % (42-75); PLATELET COUNT 420 x10^3/uL (130-400); RED BLOOD COUNT 3.71 x10^6/uL (3.82-5.3); RED CELL DISTRIBUTION WIDTH 15.9 % (9.6-15.2)
--- NOTE | 2019-07-24 10:33 | NUR ---
MEDICATED FOR PAIN AND GIVEN WARM BLANKET. SISTER MADELYN CALLED. PT WILL CALL HER BACK. NO NEEDS AT THIS TIME
[2019-07-24 10:42] LABS: ALANINE AMINOTRANSFERASE 23 U/L (12-78); ALBUMIN 3.2 g/dL (3.4-5.0); ANION GAP 5 mmol/L (5-15); CALCIUM 9.7 mg/dL (8.5-10.1); CHLORIDE 106 mmol/L (98-107); CREATININE 0.99 mg/dL (0.55-1.02)
[2019-07-24 10:47] LABS: ALKALINE PHOSPHATASE 83 U/L (45-117); BILIRUBIN,TOTAL 0.4 mg/dL (0.2-1.0); TOTAL PROTEIN 7.8 g/dL (6.4-8.2)
[2019-07-24 11:07] LABS: HCT (SEDRATE) 38.5 % (34.6-47.8)
--- NOTE | 2019-07-24 11:30 | NUR ---
PT RESTING. VS STABLE. NO NEEDS AT THIS TIME
--- NOTE | 2019-07-24 12:45 | NUR ---
Patient/Caregiver given discharge instructions and they have confirmed that they understand the instructions. Patient wheeled to dc area
[2019-07-24 12:46] VITALS: BP 116/85
== END 2019-07-24 12:47 | disposition home or self-care (01) ==
LOC: ED 12:10
DX: M13.172 Monoarthritis, not elsewhere classified, left ankle and foot (principal); M10.9 Gout, unspecified; I10 Essential (primary) hypertension; E03.9 Hypothyroidism, unspecified; Z90.710 Acquired absence of both cervix and uterus; Z87.891 Personal history of nicotine dependence
CPT/HCPCS: 36415; 73630; 80053; 84550; 85025; 85651; 96372; 99284; J1885

== ENCOUNTER → 2019-10-12 | Outpatient (CLI) | payer MEDICARE, MEDICAID ==
[~2019-10-12] MED LIST changes: +BUDE90AE INH; +COLC0.6T37 PO; +ERGO400T3 PO; +ERGO500017 PO; +SENN-204 PO; +SUCR1TAB PO; -TRAZ-137 PO; +TRAZ-175 PO
[2019-10-12 14:18] LABS: BASOPHILS # (AUTO) 0.04 x10^3/uL (0-0.1); BASOPHILS % (AUTO) 1 % (0-1); EOSINOPHILS # (AUTO) 0.05 x10^3/uL (0-0.4); EOSINOPHILS % (AUTO) 1 % (1-7); LYMPHOCYTES # (AUTO) 2.17 x10^3/uL (1-3.4); LYMPHOCYTES % (AUTO) 35 % (22-44); MD NO; MEAN CORPUSCULAR HEMOGLOBIN 33.2 pg (27.0-34.8); MEAN CORPUSCULAR HGB CONC 33.7 g/dL (32.4-35.8); MEAN CORPUSCULAR VOLUME 98.3 fL (80-100); MONOCYTES # (AUTO) 0.33 x10^3/uL (0.2-0.8); MONOCYTES % (AUTO) 5 % (2-9); NEUTROPHILS # (AUTO) 3.61 x10^3/uL (1.8-6.8); NEUTROPHILS % (AUTO) 58 % (42-75); PLATELET COUNT 285 x10^3/uL (130-400); RED BLOOD COUNT 3.92 x10^6/uL (3.82-5.3); RED CELL DISTRIBUTION WIDTH 18.7 % (9.6-15.2)
[2019-10-12 14:27] LABS: INTERNATIONAL NORMALIZED RATIO 0.94 (0.93-1.1)
[2019-10-12 21:34] LABS: ALANINE AMINOTRANSFERASE 54 U/L (12-78); ALBUMIN 4.1 g/dL (3.4-5.0); ANION GAP 10 mmol/L (5-15); CALCIUM 9.4 mg/dL (8.5-10.1); CHLORIDE 109 mmol/L (98-107); CREATININE 0.96 mg/dL (0.55-1.02)
[2019-10-12 21:36] LABS: ALKALINE PHOSPHATASE 85 U/L (45-117); BILIRUBIN,TOTAL 0.3 mg/dL (0.2-1.0); TOTAL PROTEIN 8.6 g/dL (6.4-8.2)
== END | disposition home or self-care (01) ==
LOC: STAR 12:20
PROVIDERS: ATTEND Orthopaedic Surgery
DX: M16.12 Unilateral primary osteoarthritis, left hip (principal); M16.11 Unilateral primary osteoarthritis, right hip; Z96.641 Presence of right artificial hip joint
CPT/HCPCS: 36415; 80053; 83036; 85025; 85610; 85730; 87081; 93005

== ENCOUNTER → 2019-10-12 | Outpatient (CLI) | payer MEDICARE, MEDICAID ==
[2019-10-12 14:32] LABS: LDL/HDL RATIO 2.2 (0.5-3.0)
== END | disposition home or self-care (01) ==
LOC: CFH 13:47
PROVIDERS: ATTEND Nurse Practitioner Psychiatric/Mental Health
DX: K85.90 Acute pancreatitis without necrosis or infection, unspecified (principal); R10.13 Epigastric pain; R07.81 Pleurodynia; K59.00 Constipation, unspecified; E78.5 Hyperlipidemia, unspecified
CPT/HCPCS: 36415; 80061; 82150; 83690